=== PATIENT | male | born 1940 | race African-American/Black ===

== ENCOUNTER 2017-01-11 14:26 | Day surgery (SDC) | payer OTHER, BC ==
--- NOTE | 2017-01-11 21:24 | EKG ---
Test Reason : Blood Pressure : / mmHG Vent. Rate : 049 BPM Atrial Rate : 050 BPM P-R Int : 000 ms QRS Dur : 106 ms QT Int : 528 ms P-R-T Axes : 000 032 068 degrees QTc Int : 476 ms ATRIAL FLUTTER - ATYPICAL ABNORMAL ECG WHEN COMPARED WITH ECG OF 02-JAN-2015 08:03, ATRIAL FLUTTER HAS REPLACED SINUS RHYTHM VENT. RATE HAS DECREASED BY 55 BPM T WAVE VARIATION Confirmed by FABIOLA CARTER MD ([id number]) on 01/11/2017 9:24:24 PM Referred By: FABIOLA CARTER Confirmed By:FABIOLA CARTER MD
== END 2017-01-11 15:29 | disposition home or self-care (01) ==
LOC: JASU-ENDO 14:26
PROVIDERS: ATTEND Internal Medicine Cardiovascular Disease
PROC: B246ZZ4 Ultrasonography of Right and Left Heart, Transesophageal (ICD-10-PCS; principal; 2017-01-11)
DX: Z53.8 Procedure and treatment not carried out for other reasons (principal)
CPT/HCPCS: 93005; 93010

== ENCOUNTER 2017-01-18 11:48 | Day surgery (SDC) | payer OTHER, BC ==
[2017-01-18 12:32] VITALS: BMI 24.0
[2017-01-18] MEDS ORDERED: LIDOCAINE VISCOUS 2% ORAL/TOP 20 ML UNIT-DOSE CUP MM ONE (13:21)
[2017-01-18 13:47] VITALS: TEMP 97.2
[2017-01-18 14:36] VITALS: BP 117/83; PULSE 53
--- NOTE | 2017-01-18 16:33 | EKG ---
Test Reason : Blood Pressure : / mmHG Vent. 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
== END 2017-01-18 14:35 | disposition home or self-care (01) ==
LOC: JASU-ENDO 11:48
PROVIDERS: ATTEND Internal Medicine Cardiovascular Disease
PROC: 5A2204Z Restoration of Cardiac Rhythm, Single (ICD-10-PCS; 2017-01-18)
PROC: B246ZZ4 Ultrasonography of Right and Left Heart, Transesophageal (ICD-10-PCS; principal; 2017-01-18 12:30)
DX: I48.91 Unspecified atrial fibrillation (principal)
CPT/HCPCS: 92960; 93005; 93010; 93312; 93325

== ENCOUNTER 2022-10-11 13:02 | Inpatient (IN) | payer OTHER, BC ==
[2022-10-11] MEDS ORDERED: SODIUM CHLORIDE 0.9% 500 ML INFUS.BAG IV ONE (13:36)
[2022-10-11 14:35] LABS: BASO % 0.3 % (0-2.0); EOS % 0.5 % (0-4.5); HEMATOCRIT 33.1 % (35.4-49); HEMOGLOBIN 10.3 GM/dL (11.7-16.9); LYMPH % 13.1 % (8-40); MCH 22.5 pg (25.7-33.7); MEAN CELL VOLUME 72.5 fl (80-96); MEAN PLT VOLUME 7.8 fl (7.5-11.1); MONO % 7.7 % (3.8-10.2); NEUT % 78.4 % (42.8-82.8); PLATELET COUNT 361 10^3/uL (134-434); RBC 4.56 M/mm3 (4.00-5.60); RDW 25.4 % (11.9-15.9); WHITE BLOOD COUNT 8.6 K/mm3 (4.0-10.0)
[2022-10-11 14:36] LABS: INR 1.3 (0.83-1.09)
[2022-10-11 14:39] LABS: ACTIVATED PTT 21.3 SECONDS (25.2-36.5)
[2022-10-11 14:47] LABS: CHLORIDE 96 mmol/L (98-107); POTASSIUM 4.6 mmol/L (3.5-5.1); SODIUM 134 mmol/L (136-145)
[2022-10-11 14:49] LABS: BLOOD UREA NITROGEN 32.9 mg/dL (7-18)
[2022-10-11 14:50] LABS: ALBUMIN 3.3 g/dl (3.4-5.0); ANION GAP 7 MMOL/L (8-16); CO2 31 mmol/L (21-32); GLUCOSE,RANDOM 93 mg/dL (74-106); MAGNESIUM 2.3 mg/dL (1.8-2.4)
[2022-10-11 14:52] LABS: PHOSPHOROUS 2.7 mg/dL (2.5-4.9); SGPT/ALT 17 U/L (13-61)
[2022-10-11 14:54] LABS: BILIRUBIN,TOTAL 0.7 mg/dL (0.2-1); CREATININE 0.9 mg/dL (0.55-1.3); SGOT/AST 25 U/L (15-37); TOT PROT 7.5 g/dl (6.4-8.2)
[2022-10-11 14:55] LABS: ALK PHOS 133 U/L (45-117)
[2022-10-11 14:59] LABS: CALCIUM 14.9 mg/dL (8.5-10.1)
[2022-10-11 15:00] LABS: ANISOCYTOSIS 2+; MACROCYTOSIS 1+
[2022-10-11] MEDS ORDERED: CALCITONIN - SALMON SYNTHETIC 400 UNIT/2 ML VIAL SQ SCH ×2 (16:15→16:30)
[2022-10-11] MEDS ORDERED: SODIUM CHLORIDE 1,000 ML IV SCH (16:15)
[2022-10-11] MEDS ORDERED: ZOLEDRONIC ACID 4 MG in SODIUM CHLORIDE 100 ML IVPB ONE ×2 (18:46→21:45)
[2022-10-11] MEDS: CARVEDILOL 12.5 MG TABLET (FP) PO SCH (23:02)
[2022-10-12] MEDS: CALCITONIN - SALMON SYNTHETIC 400 UNIT/2 ML VIAL IM SCH ×2 (06:50→20:39)
[2022-10-12 09:20] LABS: POTASSIUM 4.2 mmol/L (3.5-5.1)
[2022-10-12 09:27] LABS: BLOOD UREA NITROGEN 27.3 mg/dL (7-18)
[2022-10-12 09:29] LABS: CREATININE 0.7 mg/dL (0.55-1.3)
[2022-10-12 09:42] LABS: CALCIUM 12.4 mg/dL (8.5-10.1)
[2022-10-12] MEDS ORDERED: LOSARTAN POTASSIUM 50 MG TABLET PO SCH (10:00)
[2022-10-12] MEDS ORDERED: SPIRONOLACTONE 25 MG TABLET PO SCH (10:00)
[2022-10-12] MEDS ORDERED: FUROSEMIDE 20 MG TABLET (FP) PO SCH (10:00)
[2022-10-12] MEDS ORDERED: LOSARTAN POTASSIUM 25 MG TABLET PO ONE (10:19)
[2022-10-12 10:46] LABS: HEMATOCRIT 31.2 % (35.4-49); HEMOGLOBIN 9.9 GM/dL (11.7-16.9); MCH 23.1 pg (25.7-33.7); MCHC 31.7 g/dl (32.0-35.9); MEAN PLT VOLUME 8.3 fl (7.5-11.1); PLATELET COUNT 306 10^3/uL (134-434); RBC 4.28 M/mm3 (4.00-5.60); RDW 25.4 % (11.9-15.9); WHITE BLOOD COUNT 7.7 K/mm3 (4.0-10.0)
[2022-10-12] MEDS: ATORVASTATIN CA 20 MG TABLET (FP) PO SCH (12:28)
[2022-10-12 12:31] LABS: ANISOCYTOSIS 2+; MACROCYTOSIS 0; OVALOCYTE 2+; TARGET CELLS 2+; TEAR DROP CELLS 2+
[2022-10-12] MEDS: CARVEDILOL 12.5 MG TABLET (FP) PO SCH (12:54)
[2022-10-12] MEDS: CARVEDILOL 6.25 MG TABLET (FP) PO SCH ×2 (12:59→21:41)
[2022-10-12] MEDS ORDERED: SODIUM CHLORIDE 500 ML IV STA (14:53)
[2022-10-12] MEDS: SODIUM CHLORIDE 0.45% 1,000 ML IV SCH (16:50)
[2022-10-12] MEDS: FUROSEMIDE 20 MG TABLET (FP) PO SCH (21:42)
[2022-10-13] MEDS: IRON SUCROSE INJECTION 200 MG in SODIUM CHLORIDE 90 ML IVPB SCH (06:34)
[2022-10-13] MEDS: CALCITONIN - SALMON SYNTHETIC 400 UNIT/2 ML VIAL IM SCH (06:35)
[2022-10-13] MEDS: FUROSEMIDE 20 MG TABLET (FP) PO SCH ×2 (10:56→22:47)
[2022-10-13] MEDS: ATORVASTATIN CA 20 MG TABLET (FP) PO SCH (10:57)
[2022-10-13] MEDS: CARVEDILOL 6.25 MG TABLET (FP) PO SCH ×2 (10:57→21:51)
[2022-10-13 12:34] LABS: POTASSIUM 3.9 mmol/L (3.5-5.1)
[2022-10-13 12:37] LABS: ALBUMIN 2.9 g/dl (3.4-5.0); BLOOD UREA NITROGEN 21.2 mg/dL (7-18)
[2022-10-13 12:40] LABS: CREATININE 0.8 mg/dL (0.55-1.3)
[2022-10-13 12:41] LABS: BILIRUBIN,TOTAL 0.5 mg/dL (0.2-1); TOT PROT 6.6 g/dl (6.4-8.2)
[2022-10-13] MEDS: SODIUM CHLORIDE 0.45% 1,000 ML IV SCH (13:24)
[2022-10-13] MEDS: POLYETHYLENE GLYCOL (HEALTHYLAX) 3350 17 GM PACKET PO SCH (22:47)
[2022-10-13 23:54] VITALS: BMI 18.5
[2022-10-14] MEDS: IRON SUCROSE INJECTION 200 MG in SODIUM CHLORIDE 90 ML IVPB SCH (06:41)
[2022-10-14 08:52] LABS: BASO % 0.1 % (0-2.0); EOS % 1.2 % (0-4.5); HEMATOCRIT 27.9 % (35.4-49); HEMOGLOBIN 8.5 GM/dL (11.7-16.9); MCH 22.7 pg (25.7-33.7); MCHC 30.4 g/dl (32.0-35.9); MEAN CELL VOLUME 74.5 fl (80-96); MEAN PLT VOLUME 8.7 fl (7.5-11.1); MONO % 7.4 % (3.8-10.2); NEUT % 81.3 % (42.8-82.8); PLATELET COUNT 238 10^3/uL (134-434); RBC 3.75 M/mm3 (4.00-5.60); RDW 25.9 % (11.9-15.9); WHITE BLOOD COUNT 7.4 K/mm3 (4.0-10.0)
[2022-10-14 09:40] LABS: RETICULOCYTES 0.57 % (0.5-1.5)
[2022-10-14] MEDS: FUROSEMIDE 20 MG TABLET (FP) PO SCH ×2 (10:04→10:13)
[2022-10-14] MEDS: CARVEDILOL 6.25 MG TABLET (FP) PO SCH ×2 (10:05→10:13)
[2022-10-14] MEDS: PANTOPRAZOLE 40 MG TABLET PO SCH (10:05)
[2022-10-14] MEDS: ATORVASTATIN CA 20 MG TABLET (FP) PO SCH (10:05)
[2022-10-14] MEDS: POLYETHYLENE GLYCOL (HEALTHYLAX) 3350 17 GM PACKET PO SCH ×2 (10:05→22:24)
[2022-10-14 11:26] LABS: CALCIUM 9.6 mg/dL (8.5-10.1)
[2022-10-14] MEDS ORDERED: SODIUM CHLORIDE 500 ML IV STA ×3 (12:00→22:44)
[2022-10-14 13:49] LABS: HEMATOCRIT 29.9 % (35.4-49); HEMOGLOBIN 9.3 GM/dL (11.7-16.9); MEAN CELL VOLUME 74.1 fl (80-96); MEAN PLT VOLUME 7.6 fl (7.5-11.1); PLATELET COUNT 253 10^3/uL (134-434); RBC 4.04 M/mm3 (4.00-5.60); RDW 26.1 % (11.9-15.9); WHITE BLOOD COUNT 8.1 K/mm3 (4.0-10.0)
[2022-10-14] MEDS: SODIUM CHLORIDE 1,000 ML IV SCH ×2 (13:50→14:50)
[2022-10-14 14:01] LABS: POTASSIUM 3.7 mmol/L (3.5-5.1)
[2022-10-14 14:03] LABS: BLOOD UREA NITROGEN 16.5 mg/dL (7-18); CALCIUM 9.6 mg/dL (8.5-10.1)
[2022-10-14 14:04] LABS: ALBUMIN 2.7 g/dl (3.4-5.0)
[2022-10-14 14:07] LABS: CREATININE 0.7 mg/dL (0.55-1.3)
[2022-10-14 14:08] LABS: BILIRUBIN,TOTAL 0.4 mg/dL (0.2-1); TOT PROT 5.9 g/dl (6.4-8.2)
[2022-10-14 14:25] LABS: LACTIC ACID 2.3 mmol/L (0.4-2.0)
[2022-10-15] MEDS: IRON SUCROSE INJECTION 200 MG in SODIUM CHLORIDE 90 ML IVPB SCH (06:43)
[2022-10-15] MEDS ORDERED: SODIUM CHLORIDE 1,000 ML IV SCH (07:18)
[2022-10-15] MEDS ORDERED: SODIUM CHLORIDE 1,000 ML IV STA (07:18)
[2022-10-15 09:53] LABS: BASO % 0.4 % (0-2.0); HEMATOCRIT 25.8 % (35.4-49); HEMOGLOBIN 8.3 GM/dL (11.7-16.9); LYMPH % 5.4 % (8-40); MCH 23.7 pg (25.7-33.7); MCHC 32.2 g/dl (32.0-35.9); MEAN CELL VOLUME 73.5 fl (80-96); MEAN PLT VOLUME 8.1 fl (7.5-11.1); MONO % 8.3 % (3.8-10.2); NEUT % 83.9 % (42.8-82.8); PLATELET COUNT 207 10^3/uL (134-434); RBC 3.52 M/mm3 (4.00-5.60); WHITE BLOOD COUNT 7.6 K/mm3 (4.0-10.0)
[2022-10-15] MEDS ORDERED: MIDODRINE HCL 2.5 MG TABLET PO SCH ×2 (10:00→18:00)
[2022-10-15] MEDS ORDERED: FUROSEMIDE 20 MG TABLET (FP) PO SCH (10:00)
[2022-10-15 10:09] LABS: CALCIUM 8.4 mg/dL (8.5-10.1)
[2022-10-15 10:10] LABS: ALBUMIN 2.3 g/dl (3.4-5.0); BLOOD UREA NITROGEN 11.2 mg/dL (7-18)
[2022-10-15 10:13] LABS: CREATININE 0.5 mg/dL (0.55-1.3)
[2022-10-15 10:14] LABS: BILIRUBIN,TOTAL 0.8 mg/dL (0.2-1); TOT PROT 5.1 g/dl (6.4-8.2)
[2022-10-15] MEDS: POLYETHYLENE GLYCOL (HEALTHYLAX) 3350 17 GM PACKET PO SCH ×2 (10:33→21:36)
[2022-10-15] MEDS: ATORVASTATIN CA 20 MG TABLET (FP) PO SCH (10:34)
[2022-10-15] MEDS: PANTOPRAZOLE 40 MG TABLET PO SCH (10:34)
[2022-10-15 12:21] LABS: ANISOCYTOSIS 2+; MACROCYTOSIS 0; OVALOCYTE 2+; TARGET CELLS 1+
[2022-10-15] MEDS ORDERED: ACETAMINOPHEN 1000 MG/100 ML BAG IVPB ONE (17:59)
[2022-10-15] MEDS ORDERED: ALBUTEROL SO4 2.5/IPRATROPIUM 0.5 INH SOL 3 ML VIAL.NEB. NEB ONE (18:08)
[2022-10-16 09:48] LABS: BASO % 0.1 % (0-2.0); EOS % 0.9 % (0-4.5); HEMATOCRIT 27.5 % (35.4-49); HEMOGLOBIN 8.5 GM/dL (11.7-16.9); LYMPH % 5.5 % (8-40); MCH 23.3 pg (25.7-33.7); MCHC 30.9 g/dl (32.0-35.9); MEAN CELL VOLUME 75.3 fl (80-96); MEAN PLT VOLUME 8.2 fl (7.5-11.1); MONO % 4.4 % (3.8-10.2); NEUT % 89.1 % (42.8-82.8); PLATELET COUNT 275 10^3/uL (134-434); RBC 3.65 M/mm3 (4.00-5.60); RDW 26.9 % (11.9-15.9); WHITE BLOOD COUNT 14.9 K/mm3 (4.0-10.0)
[2022-10-16] MEDS ORDERED: MIDODRINE HCL 5 MG TABLET PO SCH (10:00)
[2022-10-16 10:06] LABS: POTASSIUM 4.1 mmol/L (3.5-5.1)
[2022-10-16 10:20] LABS: BLOOD UREA NITROGEN 14.1 mg/dL (7-18); CALCIUM 8.4 mg/dL (8.5-10.1)
[2022-10-16 10:23] LABS: CREATININE 0.6 mg/dL (0.55-1.3)
[2022-10-16 12:04] LABS: HIV INTERPRETATION NEGATIVE (NEGATIVE)
[2022-10-16] MEDS: POLYETHYLENE GLYCOL (HEALTHYLAX) 3350 17 GM PACKET PO SCH ×2 (12:39→21:24)
[2022-10-16] MEDS: PANTOPRAZOLE 40 MG TABLET PO SCH (12:40)
[2022-10-16] MEDS ORDERED: PIPERACILLIN/TAZOB 3.375 GM 3.375 GM in DEXTROSE 5%-WATER - 50 ML IVPB SCH ×3 (14:00)
[2022-10-16] MEDS ORDERED: PIPERACILLIN/TAZOB 4.5 GM 4.5 GM in DEXTROSE 5%-WATER 100 ML IVPB SCH (14:00)
[2022-10-16] MEDS: PIPERACILLIN/TAZOB 4.5 GM 4.5 GM in DEXTROSE 5%-WATER 100 ML IVPB SCH (15:45)
[2022-10-16] MEDS: MIDODRINE HCL 5 MG TABLET PO SCH ×2 (15:48→18:19)
[2022-10-16 17:28] LABS: BODYL FLD EOSINOPHIL 13 %
[2022-10-17] MEDS: PIPERACILLIN/TAZOB 4.5 GM 4.5 GM in DEXTROSE 5%-WATER 100 ML IVPB SCH ×3 (01:18→18:13)
[2022-10-17] MEDS ORDERED: SODIUM CHLORIDE 500 ML IV STA (02:54)
[2022-10-17 07:02] LABS: HEMATOCRIT 32.1 % (35.4-49); HEMOGLOBIN 9.7 GM/dL (11.7-16.9); MCH 22.8 pg (25.7-33.7); MCHC 30.2 g/dl (32.0-35.9); MEAN CELL VOLUME 75.5 fl (80-96); MEAN PLT VOLUME 8.7 fl (7.5-11.1); PLATELET COUNT 290 10^3/uL (134-434); RBC 4.26 M/mm3 (4.00-5.60); RDW 26.9 % (11.9-15.9); WHITE BLOOD COUNT 14.8 K/mm3 (4.0-10.0)
[2022-10-17 07:13] LABS: POTASSIUM 4.3 mmol/L (3.5-5.1)
[2022-10-17 07:14] LABS: CALCIUM 8.1 mg/dL (8.5-10.1)
[2022-10-17 07:18] LABS: CREATININE 0.5 mg/dL (0.55-1.3)
[2022-10-17] MEDS: MIDODRINE HCL 5 MG TABLET PO SCH ×3 (09:58→18:13)
[2022-10-17] MEDS: PANTOPRAZOLE 40 MG TABLET PO SCH (09:58)
[2022-10-17] MEDS: POLYETHYLENE GLYCOL (HEALTHYLAX) 3350 17 GM PACKET PO SCH ×2 (09:58→21:08)
[2022-10-17 10:56] LABS: LACTIC ACID 2.2 mmol/L (0.4-2.0)
[2022-10-17] MEDS ORDERED: SODIUM CHLORIDE 1,000 ML IV SCH (12:00)
[2022-10-17] MEDS: MIRTAZAPINE 15 MG TABLET (FP) PO SCH (21:09)
[2022-10-18] MEDS: PIPERACILLIN/TAZOB 4.5 GM 4.5 GM in DEXTROSE 5%-WATER 100 ML IVPB SCH ×3 (01:21→17:36)
[2022-10-18 07:17] LABS: HEMATOCRIT 28.3 % (35.4-49); MCH 23.6 pg (25.7-33.7); MCHC 31.8 g/dl (32.0-35.9); MEAN CELL VOLUME 74.1 fl (80-96); PLATELET COUNT 296 10^3/uL (134-434); RBC 3.81 M/mm3 (4.00-5.60); RDW 27.1 % (11.9-15.9); WHITE BLOOD COUNT 12.5 K/mm3 (4.0-10.0)
[2022-10-18] MEDS: MIDODRINE HCL 5 MG TABLET PO SCH ×3 (09:57→17:36)
[2022-10-18] MEDS: POLYETHYLENE GLYCOL (HEALTHYLAX) 3350 17 GM PACKET PO SCH ×2 (09:58→21:24)
[2022-10-18] MEDS: PANTOPRAZOLE 40 MG TABLET PO SCH (09:58)
[2022-10-18] MEDS: MIRTAZAPINE 15 MG TABLET (FP) PO SCH (21:24)
[2022-10-19] MEDS: PIPERACILLIN/TAZOB 4.5 GM 4.5 GM in DEXTROSE 5%-WATER 100 ML IVPB SCH ×3 (01:09→17:12)
[2022-10-19 07:15] LABS: POTASSIUM 4.1 mmol/L (3.5-5.1)
[2022-10-19 07:17] LABS: ALBUMIN 1.9 g/dl (3.4-5.0); CALCIUM 7.7 mg/dL (8.5-10.1)
[2022-10-19 07:18] LABS: BLOOD UREA NITROGEN 14.2 mg/dL (7-18)
[2022-10-19 07:21] LABS: CREATININE 0.5 mg/dL (0.55-1.3)
[2022-10-19 07:22] LABS: BILIRUBIN,TOTAL 0.6 mg/dL (0.2-1); TOT PROT 4.7 g/dl (6.4-8.2)
[2022-10-19 07:47] LABS: HEMATOCRIT 25.9 % (35.4-49); HEMOGLOBIN 8.2 GM/dL (11.7-16.9); MCH 23.2 pg (25.7-33.7); MCHC 31.8 g/dl (32.0-35.9); MEAN CELL VOLUME 72.9 fl (80-96); MEAN PLT VOLUME 7.1 fl (7.5-11.1); PLATELET COUNT 279 10^3/uL (134-434); RBC 3.55 M/mm3 (4.00-5.60); RDW 26.8 % (11.9-15.9); WHITE BLOOD COUNT 11.2 K/mm3 (4.0-10.0)
[2022-10-19 09:09] LABS: ANISOCYTOSIS 2+; MACROCYTOSIS 0; OVALOCYTE 1+
[2022-10-19] MEDS: POLYETHYLENE GLYCOL (HEALTHYLAX) 3350 17 GM PACKET PO SCH ×2 (09:24→22:02)
[2022-10-19] MEDS: MIDODRINE HCL 5 MG TABLET PO SCH ×3 (09:24→17:13)
[2022-10-19] MEDS: PANTOPRAZOLE 40 MG TABLET PO SCH (09:24)
[2022-10-19 12:10] LABS: BODY FLUID ALBUMIN 1.6 g/dL (Not Estab.)
[2022-10-19] MEDS: MIRTAZAPINE 15 MG TABLET (FP) PO SCH (22:02)
[2022-10-20] MEDS: PIPERACILLIN/TAZOB 4.5 GM 4.5 GM in DEXTROSE 5%-WATER 100 ML IVPB SCH ×3 (02:51→18:32)
[2022-10-20 06:35] LABS: HEMATOCRIT 28.1 % (35.4-49); HEMOGLOBIN 8.7 GM/dL (11.7-16.9); MCH 23.3 pg (25.7-33.7); MCHC 31.2 g/dl (32.0-35.9); MEAN CELL VOLUME 74.8 fl (80-96); MEAN PLT VOLUME 7.3 fl (7.5-11.1); PLATELET COUNT 285 10^3/uL (134-434); RBC 3.75 M/mm3 (4.00-5.60); RDW 26.6 % (11.9-15.9); WHITE BLOOD COUNT 10.8 K/mm3 (4.0-10.0)
[2022-10-20 06:58] LABS: POTASSIUM 4.4 mmol/L (3.5-5.1)
[2022-10-20 07:00] LABS: ALBUMIN 1.8 g/dl (3.4-5.0); BLOOD UREA NITROGEN 13.4 mg/dL (7-18)
[2022-10-20 07:03] LABS: CREATININE 0.4 mg/dL (0.55-1.3)
[2022-10-20 07:05] LABS: BILIRUBIN,TOTAL 0.7 mg/dL (0.2-1)
[2022-10-20 08:42] LABS: ANISOCYTOSIS 2+; MACROCYTOSIS 0; TARGET CELLS 0
[2022-10-20] MEDS: MIDODRINE HCL 5 MG TABLET PO SCH ×3 (09:12→18:32)
[2022-10-20] MEDS: PANTOPRAZOLE 40 MG TABLET PO SCH (09:12)
[2022-10-20] MEDS: POLYETHYLENE GLYCOL (HEALTHYLAX) 3350 17 GM PACKET PO SCH ×2 (09:13→21:20)
[2022-10-20 13:07] LABS: BODY FLUID ALBUMIN 1.5 g/dL (Not Estab.)
[2022-10-20] MEDS: MIRTAZAPINE 15 MG TABLET (FP) PO SCH (21:20)
[2022-10-21] MEDS: PIPERACILLIN/TAZOB 4.5 GM 4.5 GM in DEXTROSE 5%-WATER 100 ML IVPB SCH ×3 (01:04→17:13)
[2022-10-21 06:36] LABS: HEMATOCRIT 27.1 % (35.4-49); HEMOGLOBIN 8.6 GM/dL (11.7-16.9); MCH 23.8 pg (25.7-33.7); MCHC 31.8 g/dl (32.0-35.9); MEAN CELL VOLUME 74.8 fl (80-96); MEAN PLT VOLUME 7.3 fl (7.5-11.1); PLATELET COUNT 280 10^3/uL (134-434); RBC 3.63 M/mm3 (4.00-5.60); RDW 27.3 % (11.9-15.9); WHITE BLOOD COUNT 13.1 K/mm3 (4.0-10.0)
[2022-10-21 06:55] LABS: POTASSIUM 4.6 mmol/L (3.5-5.1)
[2022-10-21 06:57] LABS: BLOOD UREA NITROGEN 12.9 mg/dL (7-18); CALCIUM 8.1 mg/dL (8.5-10.1)
[2022-10-21 07:01] LABS: CREATININE 0.5 mg/dL (0.55-1.3)
[2022-10-21] MEDS ORDERED: ENOXAPARIN NA (PORCINE) 40 MG/0.4 ML DISP.SYRIN SQ ONE (10:00)
[2022-10-21] MEDS: POLYETHYLENE GLYCOL (HEALTHYLAX) 3350 17 GM PACKET PO SCH ×2 (10:09→21:25)
[2022-10-21] MEDS: PANTOPRAZOLE 40 MG TABLET PO SCH (10:10)
[2022-10-21] MEDS: MIDODRINE HCL 5 MG TABLET PO SCH ×3 (10:10→17:13)
[2022-10-21] MEDS: AMINO ACIDS/PROTEIN HYDROLYS 30 ML LIQUID.PKT PO SCH (17:13)
[2022-10-21] MEDS: MIRTAZAPINE 15 MG TABLET (FP) PO SCH (21:25)
[2022-10-21 21:28] LABS: INR 1.33 (0.83-1.09); PROTHROMBIN TIME (PATIENT) 15.4 SEC (9.7-13.0)
[2022-10-21 21:37] LABS: ACTIVATED PTT 27.2 SECONDS (25.2-36.5)
[2022-10-22] MEDS: PIPERACILLIN/TAZOB 4.5 GM 4.5 GM in DEXTROSE 5%-WATER 100 ML IVPB SCH ×3 (01:57→17:53)
[2022-10-22] MEDS ORDERED: PROPOFOL 20 ML ONE (07:02)
[2022-10-22] MEDS ORDERED: MIDAZOLAM HCL 2 MG/2 ML SINGLE DOSE VIAL ONE (07:02)
[2022-10-22] MEDS ORDERED: ROCURONIUM BROMIDE 50 MG/5 ML SYRINGE ONE (07:02)
[2022-10-22 07:04] LABS: HEMATOCRIT 27.7 % (35.4-49); HEMOGLOBIN 8.6 GM/dL (11.7-16.9); MCH 23.2 pg (25.7-33.7); MEAN CELL VOLUME 74.9 fl (80-96); MEAN PLT VOLUME 7.5 fl (7.5-11.1); PLATELET COUNT 258 10^3/uL (134-434); RDW 27.4 % (11.9-15.9); WHITE BLOOD COUNT 11.4 K/mm3 (4.0-10.0)
[2022-10-22] MEDS: AMINO ACIDS/PROTEIN HYDROLYS 30 ML LIQUID.PKT PO SCH ×2 (07:13→17:53)
[2022-10-22 07:20] LABS: INR 1.31 (0.83-1.09); PROTHROMBIN TIME (PATIENT) 15.2 SEC (9.7-13.0)
[2022-10-22 07:23] LABS: ACTIVATED PTT 28.1 SECONDS (25.2-36.5)
[2022-10-22 07:32] LABS: POTASSIUM 4.6 mmol/L (3.5-5.1)
[2022-10-22 07:34] LABS: BLOOD UREA NITROGEN 10.6 mg/dL (7-18); CALCIUM 8.3 mg/dL (8.5-10.1)
[2022-10-22 07:38] LABS: CREATININE 0.5 mg/dL (0.55-1.3)
[2022-10-22] MEDS ORDERED: BUPIVACAINE HCL/PF 0.25% (2.5MG/ML) 10 ML VIAL ONE ×2 (08:03→09:14)
[2022-10-22] MEDS ORDERED: BUPIVACAINE LIPOSOME/PF (EXPAREL) 266 MG/20 ML VIAL ONE (08:03)
[2022-10-22 09:02] LABS: ANISOCYTOSIS 3+; MACROCYTOSIS 0
[2022-10-22] MEDS: MIDODRINE HCL 5 MG TABLET PO SCH ×3 (09:46→17:53)
[2022-10-22] MEDS: PANTOPRAZOLE 40 MG TABLET PO SCH (09:46)
[2022-10-22] MEDS: POLYETHYLENE GLYCOL (HEALTHYLAX) 3350 17 GM PACKET PO SCH ×2 (09:46→21:00)
[2022-10-22] MEDS ORDERED: MULTIVITAMINS (DAILY MVI) TABLET (FP) PO SCH (10:00)
[2022-10-22] MEDS ORDERED: BUPIVACAINE HCL/PF 0.25% (2.5MG/ML) 10 ML VIAL IJ ONE ×2 (10:10→11:00)
[2022-10-22] MEDS ORDERED: PIPERACILLIN/TAZOBACTAM 3.375 GM VIAL IVPB ONE (10:14)
[2022-10-22] MEDS ORDERED: NEOSTIGMINE METHYLSULFATE 0.5 MG/1 ML - 10 ML MDV ONE (11:00)
[2022-10-22] MEDS ORDERED: GLYCOPYRROLATE 0.2 MG/1 ML VIAL ONE ×2 (11:00→11:17)
[2022-10-22] MEDS ORDERED: ONDANSETRON 4 MG/2 ML VIAL ONE (11:00)
[2022-10-22] MEDS ORDERED: DEXAMETHASONE SOD PHOSPHATE 4 MG/1 ML VIAL ONE (11:00)
[2022-10-22] MEDS ORDERED: METOPROLOL TARTRATE 5 MG/5 ML VIAL ONE (11:18)
[2022-10-22] MEDS ORDERED: KETOROLAC TROMETHAMINE 15 MG/ML VIAL IVPUSH PRN (12:20)
[2022-10-22] MEDS ORDERED: morphine CARPU-JECT 2 MG/1 ML DISP.SYRIN IVPUSH PRN (12:44)
[2022-10-22] MEDS: ACETAMINOPHEN 1000 MG/100 ML BAG IVPB SCH ×2 (12:44→20:25)
[2022-10-22] MEDS ORDERED: ONDANSETRON 4 MG/2 ML VIAL IVPUSH PRN (12:46)
[2022-10-22] MEDS ORDERED: PROMETHAZINE HCL 25 MG/1 ML VIAL IVPB PRN (12:46)
[2022-10-22] MEDS ORDERED: DEXAMETHASONE SOD PHOSPHATE 4 MG/1 ML VIAL IVPUSH PRN (12:46)
[2022-10-22] MEDS ORDERED: HYDROmorphone *PCA* 10MG/50ML DISP.SYRIN PCA SCH (13:00)
[2022-10-22] MEDS ORDERED: HYDROmorphone *PCA* 10MG/50ML DISP.SYRIN ONE (13:02)
[2022-10-22] MEDS: MIRTAZAPINE 15 MG TABLET (FP) PO SCH (21:00)
[2022-10-22] MEDS ORDERED: CHLORHEXIDINE GLUCONATE 4% CLEANSER FOR DECOLONIZATION TP SCH (22:00)
[2022-10-22] MEDS ORDERED: MUPIROCIN 2% TOPICAL OINTMENT FOR DECOLONIZATION NS SCH (22:00)
[2022-10-23] MEDS: PIPERACILLIN/TAZOB 4.5 GM 4.5 GM in DEXTROSE 5%-WATER 100 ML IVPB SCH ×3 (00:59→17:45)
[2022-10-23] MEDS: ACETAMINOPHEN 1000 MG/100 ML BAG IVPB SCH ×2 (04:28→13:07)
[2022-10-23 07:04] LABS: HEMOGLOBIN 8.6 GM/dL (11.7-16.9); MCH 23.2 pg (25.7-33.7); MCHC 30.7 g/dl (32.0-35.9); MEAN CELL VOLUME 75.7 fl (80-96); MEAN PLT VOLUME 8.4 fl (7.5-11.1); PLATELET COUNT 278 10^3/uL (134-434); RDW 27.1 % (11.9-15.9); WHITE BLOOD COUNT 16.6 K/mm3 (4.0-10.0)
[2022-10-23 08:24] LABS: POTASSIUM 5.2 mmol/L (3.5-5.1)
[2022-10-23 08:27] LABS: ALBUMIN 1.9 g/dl (3.4-5.0)
[2022-10-23 08:30] LABS: CREATININE 0.5 mg/dL (0.55-1.3)
[2022-10-23 08:32] LABS: BILIRUBIN,TOTAL 0.6 mg/dL (0.2-1); TOT PROT 5.2 g/dl (6.4-8.2)
[2022-10-23 08:48] LABS: ANISOCYTOSIS 3+; MACROCYTOSIS 0
[2022-10-23] MEDS: MULTIVITAMINS (DAILY MVI) TABLET (FP) PO SCH (09:49)
[2022-10-23] MEDS: MIDODRINE HCL 5 MG TABLET PO SCH ×3 (09:49→17:45)
[2022-10-23] MEDS: ENOXAPARIN NA (PORCINE) 40 MG/0.4 ML DISP.SYRIN SQ SCH (09:49)
[2022-10-23] MEDS: PANTOPRAZOLE 40 MG TABLET PO SCH (09:49)
[2022-10-23] MEDS: POLYETHYLENE GLYCOL (HEALTHYLAX) 3350 17 GM PACKET PO SCH ×2 (09:49→21:09)
[2022-10-23] MEDS: AMINO ACIDS/PROTEIN HYDROLYS 30 ML LIQUID.PKT PO SCH ×2 (09:49→17:45)
[2022-10-23] MEDS ORDERED: DEXTROSE 5%-0.45% SALINE 1,000 ML IV SCH (15:00)
[2022-10-23] MEDS: DEXTROSE 5%-NORMAL SALINE 1,000 ML IV SCH (15:15)
[2022-10-23] MEDS: MIRTAZAPINE 15 MG TABLET (FP) PO SCH (21:09)
[2022-10-24] MEDS: PIPERACILLIN/TAZOB 4.5 GM 4.5 GM in DEXTROSE 5%-WATER 100 ML IVPB SCH ×3 (01:06→17:43)
[2022-10-24 06:35] LABS: BASO % 0.1 % (0-2.0); EOS % 0.9 % (0-4.5); HEMOGLOBIN 7.8 GM/dL (11.7-16.9); MCH 23.6 pg (25.7-33.7); MCHC 31.2 g/dl (32.0-35.9); MEAN CELL VOLUME 75.8 fl (80-96); MONO % 4.5 % (3.8-10.2); NEUT % 87.5 % (42.8-82.8); PLATELET COUNT 256 10^3/uL (134-434); RDW 27.1 % (11.9-15.9); WHITE BLOOD COUNT 12.1 K/mm3 (4.0-10.0)
[2022-10-24] MEDS: DEXTROSE 5%-NORMAL SALINE 1,000 ML IV SCH ×3 (06:37→21:43)
[2022-10-24 06:40] LABS: CHLORIDE 110 mmol/L (98-107); POTASSIUM 4.3 mmol/L (3.5-5.1); SODIUM 142 mmol/L (136-145)
[2022-10-24 06:42] LABS: CALCIUM 7.7 mg/dL (8.5-10.1)
[2022-10-24 06:43] LABS: ALBUMIN 1.7 g/dl (3.4-5.0); ANION GAP 6 MMOL/L (8-16); BLOOD UREA NITROGEN 14.5 mg/dL (7-18); CO2 27 mmol/L (21-32); GLUCOSE,RANDOM 102 mg/dL (74-106); MAGNESIUM 1.8 mg/dL (1.8-2.4)
[2022-10-24 06:45] LABS: SGPT/ALT 12 U/L (13-61)
[2022-10-24 06:46] LABS: CREATININE 0.5 mg/dL (0.55-1.3); SGOT/AST 13 U/L (15-37)
[2022-10-24 06:47] LABS: BILIRUBIN,TOTAL 0.5 mg/dL (0.2-1); TOT PROT 4.9 g/dl (6.4-8.2)
[2022-10-24 06:48] LABS: ALK PHOS 100 U/L (45-117)
[2022-10-24] MEDS: AMINO ACIDS/PROTEIN HYDROLYS 30 ML LIQUID.PKT PO SCH ×2 (08:33→17:43)
[2022-10-24 08:57] LABS: ANISOCYTOSIS 0; HELMET CELLS 0; HOWELL-JOLLY BODIES 0; MACROCYTOSIS 0; OVALOCYTE 0; ROULEAU 0; SICKELED CELLS 0; TARGET CELLS 0; TEAR DROP CELLS 0; TOXIC GRANULATION 0
[2022-10-24] MEDS ORDERED: SODIUM PHOSPHATE - 30 MM in DEXTROSE 5%-WATER - 250 ML IVPB ONE (09:00)
[2022-10-24] MEDS: PANTOPRAZOLE 40 MG TABLET PO SCH (09:12)
[2022-10-24] MEDS: ENOXAPARIN NA (PORCINE) 40 MG/0.4 ML DISP.SYRIN SQ SCH (09:12)
[2022-10-24] MEDS: MULTIVITAMINS (DAILY MVI) TABLET (FP) PO SCH (09:12)
[2022-10-24] MEDS: MIDODRINE HCL 5 MG TABLET PO SCH ×3 (09:12→17:43)
[2022-10-24] MEDS: POLYETHYLENE GLYCOL (HEALTHYLAX) 3350 17 GM PACKET PO SCH ×2 (09:12→21:31)
[2022-10-24] MEDS: ACETAMINOPHEN 1000 MG/100 ML BAG IVPB SCH ×2 (11:53→18:35)
[2022-10-24] MEDS ORDERED: MAGNESIUM 1GM/D5W 100ML - 100 ML IVPB IVPB ONE (12:00)
[2022-10-24] MEDS: MIRTAZAPINE 15 MG TABLET (FP) PO SCH (21:31)
[2022-10-25] MEDS: PIPERACILLIN/TAZOB 4.5 GM 4.5 GM in DEXTROSE 5%-WATER 100 ML IVPB SCH ×3 (01:10→17:36)
[2022-10-25] MEDS: ACETAMINOPHEN 1000 MG/100 ML BAG IVPB SCH (02:04)
[2022-10-25 06:54] LABS: HEMATOCRIT 28.7 % (35.4-49); HEMOGLOBIN 8.8 GM/dL (11.7-16.9); MCH 23.6 pg (25.7-33.7); MCHC 30.7 g/dl (32.0-35.9); MEAN CELL VOLUME 76.9 fl (80-96); MEAN PLT VOLUME 8.1 fl (7.5-11.1); PLATELET COUNT 251 10^3/uL (134-434); RBC 3.73 M/mm3 (4.00-5.60); RDW 27.3 % (11.9-15.9); WHITE BLOOD COUNT 10.7 K/mm3 (4.0-10.0)
[2022-10-25 07:46] LABS: POTASSIUM 3.9 mmol/L (3.5-5.1)
[2022-10-25 07:47] LABS: CALCIUM 7.5 mg/dL (8.5-10.1)
[2022-10-25 07:48] LABS: BLOOD UREA NITROGEN 9.4 mg/dL (7-18)
[2022-10-25 07:51] LABS: CREATININE 0.4 mg/dL (0.55-1.3); PHOSPHOROUS 1.3 mg/dL (2.5-4.9)
[2022-10-25] MEDS: AMINO ACIDS/PROTEIN HYDROLYS 30 ML LIQUID.PKT PO SCH ×2 (10:00→17:36)
[2022-10-25] MEDS ORDERED: POTASSIUM PHOSPHATE 30 MM in DEXTROSE 5%-WATER - 250 ML IVPB ONE (11:00)
[2022-10-25] MEDS: MIDODRINE HCL 5 MG TABLET PO SCH ×3 (11:25→17:36)
[2022-10-25] MEDS: ENOXAPARIN NA (PORCINE) 40 MG/0.4 ML DISP.SYRIN SQ SCH (12:25)
[2022-10-25] MEDS: MULTIVITAMINS (DAILY MVI) TABLET (FP) PO SCH (12:25)
[2022-10-25] MEDS: PANTOPRAZOLE 40 MG TABLET PO SCH (12:25)
[2022-10-25] MEDS: POLYETHYLENE GLYCOL (HEALTHYLAX) 3350 17 GM PACKET PO SCH ×2 (12:25→21:30)
[2022-10-25] MEDS ORDERED: AMIODARONE HCL INJECTION 150 MG in DEXTROSE 5%-WATER - 100 ML IVPB ONE (18:16)
[2022-10-25] MEDS ORDERED: AMIODARONE IN DEXTROSE,ISO-OSM 150 MG/100 ML BAG ONE (18:26)
[2022-10-25] MEDS ORDERED: LORazepam 2 MG/ML SDV VIAL IVPUSH STA (20:32)
[2022-10-25] MEDS: DEXTROSE 5%-NORMAL SALINE 1,000 ML IV SCH (20:37)
[2022-10-25] MEDS: MIRTAZAPINE 15 MG TABLET (FP) PO SCH (21:29)
[2022-10-26] MEDS: PIPERACILLIN/TAZOB 4.5 GM 4.5 GM in DEXTROSE 5%-WATER 100 ML IVPB SCH ×3 (01:06→17:11)
[2022-10-26 07:33] LABS: HEMOGLOBIN 8.3 GM/dL (11.7-16.9); MCH 23.5 pg (25.7-33.7); MCHC 30.7 g/dl (32.0-35.9); MEAN CELL VOLUME 76.7 fl (80-96); MEAN PLT VOLUME 8.1 fl (7.5-11.1); PLATELET COUNT 255 10^3/uL (134-434); RBC 3.52 M/mm3 (4.00-5.60); RDW 27.3 % (11.9-15.9); WHITE BLOOD COUNT 11.3 K/mm3 (4.0-10.0)
[2022-10-26 07:55] LABS: POTASSIUM 4.4 mmol/L (3.5-5.1)
[2022-10-26 07:57] LABS: CALCIUM 7.8 mg/dL (8.5-10.1)
[2022-10-26 07:58] LABS: ALBUMIN 1.6 g/dl (3.4-5.0); BLOOD UREA NITROGEN 8.8 mg/dL (7-18); MAGNESIUM 1.9 mg/dL (1.8-2.4)
[2022-10-26 08:01] LABS: CREATININE 0.4 mg/dL (0.55-1.3); PHOSPHOROUS 1.7 mg/dL (2.5-4.9)
[2022-10-26 08:02] LABS: BILIRUBIN,TOTAL 0.5 mg/dL (0.2-1); TOT PROT 4.8 g/dl (6.4-8.2)
[2022-10-26] MEDS ORDERED: NAPH,MB-DB/K PH,MBDB POWDER PACKET PO ONE (08:18)
[2022-10-26 08:30] LABS: ANISOCYTOSIS 2+; MACROCYTOSIS 1+; OVALOCYTE 1+; TARGET CELLS 2+; TEAR DROP CELLS 1+
[2022-10-26] MEDS: ENOXAPARIN NA (PORCINE) 40 MG/0.4 ML DISP.SYRIN SQ SCH (09:04)
[2022-10-26] MEDS: POLYETHYLENE GLYCOL (HEALTHYLAX) 3350 17 GM PACKET PO SCH ×2 (09:05→22:05)
[2022-10-26] MEDS: PANTOPRAZOLE 40 MG TABLET PO SCH (09:05)
[2022-10-26] MEDS: MIDODRINE HCL 5 MG TABLET PO SCH ×3 (09:05→17:09)
[2022-10-26] MEDS: MULTIVITAMINS (DAILY MVI) TABLET (FP) PO SCH (09:05)
[2022-10-26] MEDS: AMINO ACIDS/PROTEIN HYDROLYS 30 ML LIQUID.PKT PO SCH ×2 (09:06→17:10)
[2022-10-26] MEDS: DEXTROSE 5%-NORMAL SALINE 1,000 ML IV SCH (15:20)
[2022-10-26] MEDS ORDERED: SODIUM CHLORIDE 500 ML IV STA (17:28)
[2022-10-26] MEDS ORDERED: POTASSIUM PHOSPHATE 30 MM in DEXTROSE 5%-WATER - 250 ML IVPB ONE (17:30)
[2022-10-26] MEDS: MIRTAZAPINE 15 MG TABLET (FP) PO SCH (22:15)
[2022-10-27] MEDS: PIPERACILLIN/TAZOB 4.5 GM 4.5 GM in DEXTROSE 5%-WATER 100 ML IVPB SCH ×3 (02:37→17:08)
[2022-10-27 07:54] LABS: HEMATOCRIT 24.3 % (35.4-49); HEMOGLOBIN 7.7 GM/dL (11.7-16.9); MCH 24.3 pg (25.7-33.7); MCHC 31.7 g/dl (32.0-35.9); MEAN CELL VOLUME 76.7 fl (80-96); MEAN PLT VOLUME 8.3 fl (7.5-11.1); PLATELET COUNT 255 10^3/uL (134-434); RBC 3.16 M/mm3 (4.00-5.60); WHITE BLOOD COUNT 9.5 K/mm3 (4.0-10.0)
[2022-10-27 08:01] LABS: MAGNESIUM 1.7 mg/dL (1.8-2.4)
[2022-10-27 08:05] LABS: PHOSPHOROUS 2.4 mg/dL (2.5-4.9)
[2022-10-27 09:21] LABS: ANISOCYTOSIS 2+; MACROCYTOSIS 1+
[2022-10-27] MEDS: POLYETHYLENE GLYCOL (HEALTHYLAX) 3350 17 GM PACKET PO SCH (09:32)
[2022-10-27] MEDS: PANTOPRAZOLE 40 MG TABLET PO SCH (09:35)
[2022-10-27] MEDS: MIDODRINE HCL 5 MG TABLET PO SCH ×3 (09:36→17:09)
[2022-10-27] MEDS: AMINO ACIDS/PROTEIN HYDROLYS 30 ML LIQUID.PKT PO SCH ×2 (09:36→17:09)
[2022-10-27] MEDS: ENOXAPARIN NA (PORCINE) 40 MG/0.4 ML DISP.SYRIN SQ SCH (09:36)
[2022-10-27] MEDS: MULTIVITAMINS (DAILY MVI) TABLET (FP) PO SCH (09:36)
[2022-10-27] MEDS ORDERED: MAGNESIUM 2GM/50ML STERILE WATER IVPB IVPB ONE (09:45)
[2022-10-27] MEDS ORDERED: NAPH,MB-DB/K PH,MBDB POWDER PACKET PO ONE (09:45)
[2022-10-27] MEDS: DOCUSATE SODIUM 100 MG CAPSULE (FP) PO SCH (11:19)
[2022-10-27] MEDS: DEXTROSE 5%-NORMAL SALINE 1,000 ML IV SCH (17:08)
[2022-10-27] MEDS: MIRTAZAPINE 15 MG TABLET (FP) PO SCH (21:20)
[2022-10-27] MEDS: APIXABAN 2.5 MG TABLET PO SCH (21:20)
[2022-10-27] MEDS: ATORVASTATIN CA 20 MG TABLET (FP) PO SCH (21:20)
[2022-10-27] MEDS ORDERED: AMIODARONE IN DEXTROSE,ISO-OSM 150 MG/100 ML BAG IVPB ONE (21:30)
[2022-10-27] MEDS ORDERED: AMIODARONE IN DEXTROSE,ISO-OSM 360 MG/200 ML BAG IVPB ONE (21:40)
[2022-10-28] MEDS: PIPERACILLIN/TAZOB 4.5 GM 4.5 GM in DEXTROSE 5%-WATER 100 ML IVPB SCH ×2 (01:03→09:12)
[2022-10-28] MEDS: DEXTROSE 5%-NORMAL SALINE 1,000 ML IV SCH (01:06)
[2022-10-28] MEDS ORDERED: AMIODARONE IN DEXTROSE,ISO-OSM 360 MG/200 ML BAG IVPB ONE (03:40)
[2022-10-28 07:50] LABS: HEMATOCRIT 24.2 % (35.4-49); HEMOGLOBIN 7.5 GM/dL (11.7-16.9); MCH 23.8 pg (25.7-33.7); MCHC 30.9 g/dl (32.0-35.9); MEAN PLT VOLUME 8.2 fl (7.5-11.1); PLATELET COUNT 269 10^3/uL (134-434); RBC 3.14 M/mm3 (4.00-5.60); RDW 28.3 % (11.9-15.9); WHITE BLOOD COUNT 11.8 K/mm3 (4.0-10.0)
[2022-10-28 08:05] LABS: POTASSIUM 4.2 mmol/L (3.5-5.1)
[2022-10-28 08:11] LABS: ALBUMIN 1.6 g/dl (3.4-5.0)
[2022-10-28 08:12] LABS: BLOOD UREA NITROGEN 9.5 mg/dL (7-18); MAGNESIUM 1.9 mg/dL (1.8-2.4)
[2022-10-28 08:14] LABS: CREATININE 0.4 mg/dL (0.55-1.3); PHOSPHOROUS 1.5 mg/dL (2.5-4.9)
[2022-10-28 08:15] LABS: BILIRUBIN,TOTAL 0.3 mg/dL (0.2-1)
[2022-10-28 08:16] LABS: TOT PROT 4.5 g/dl (6.4-8.2)
[2022-10-28] MEDS: MULTIVITAMINS (DAILY MVI) TABLET (FP) PO SCH (09:11)
[2022-10-28] MEDS: MIDODRINE HCL 5 MG TABLET PO SCH ×3 (09:11→17:19)
[2022-10-28] MEDS: APIXABAN 2.5 MG TABLET PO SCH ×2 (09:11→21:04)
[2022-10-28] MEDS: DOCUSATE SODIUM 100 MG CAPSULE (FP) PO SCH (09:11)
[2022-10-28] MEDS: PANTOPRAZOLE 40 MG TABLET PO SCH (09:11)
[2022-10-28] MEDS: AMINO ACIDS/PROTEIN HYDROLYS 30 ML LIQUID.PKT PO SCH ×2 (09:11→17:20)
[2022-10-28 09:26] LABS: ANISOCYTOSIS 2+; MACROCYTOSIS 1+
[2022-10-28] MEDS ORDERED: POTASSIUM PHOSPHATE 30 MM in DEXTROSE 5%-WATER - 250 ML IVPB ONE (12:29)
[2022-10-28] MEDS ORDERED: DEXTROSE 5%-0.45% SALINE 1,000 ML IV SCH (13:30)
[2022-10-28] MEDS: NAPH,MB-DB/K PH,MBDB POWDER PACKET PO SCH ×2 (14:02→21:04)
[2022-10-28] MEDS: metoPROLOL SUCCINATE 25 MG TAB.SR.24H (FP) PO SCH (14:02)
[2022-10-28] MEDS: AMOX TR/POT CLAV 875MG/125MG TABLETS (FP) PO SCH (17:19)
[2022-10-28] MEDS: MIRTAZAPINE 15 MG TABLET (FP) PO SCH (21:04)
[2022-10-28] MEDS: ATORVASTATIN CA 20 MG TABLET (FP) PO SCH (21:04)
[2022-10-29] MEDS: AMOX TR/POT CLAV 875MG/125MG TABLETS (FP) PO SCH ×2 (07:38→17:14)
[2022-10-29] MEDS: AMINO ACIDS/PROTEIN HYDROLYS 30 ML LIQUID.PKT PO SCH ×2 (07:39→17:14)
[2022-10-29 08:10] LABS: ALBUMIN 1.6 g/dl (3.4-5.0); CALCIUM 8.5 mg/dL (8.5-10.1)
[2022-10-29 08:14] LABS: MAGNESIUM 1.9 mg/dL (1.8-2.4)
[2022-10-29 08:15] LABS: BILIRUBIN,TOTAL 0.4 mg/dL (0.2-1); CREATININE 0.4 mg/dL (0.55-1.3); PHOSPHOROUS 1.9 mg/dL (2.5-4.9)
[2022-10-29 08:17] LABS: TOT PROT 4.7 g/dl (6.4-8.2)
[2022-10-29 08:46] LABS: HEMATOCRIT 23.6 % (35.4-49); HEMOGLOBIN 7.4 GM/dL (11.7-16.9); MCH 24.3 pg (25.7-33.7); MCHC 31.4 g/dl (32.0-35.9); MEAN CELL VOLUME 77.5 fl (80-96); MEAN PLT VOLUME 7.9 fl (7.5-11.1); PLATELET COUNT 275 10^3/uL (134-434); RBC 3.05 M/mm3 (4.00-5.60); RDW 29.3 % (11.9-15.9); WHITE BLOOD COUNT 10.5 K/mm3 (4.0-10.0)
[2022-10-29] MEDS: MIDODRINE HCL 5 MG TABLET PO SCH ×3 (09:05→17:15)
[2022-10-29] MEDS: DOCUSATE SODIUM 100 MG CAPSULE (FP) PO SCH (09:05)
[2022-10-29] MEDS: MULTIVITAMINS (DAILY MVI) TABLET (FP) PO SCH (09:05)
[2022-10-29] MEDS: metoPROLOL SUCCINATE 25 MG TAB.SR.24H (FP) PO SCH (09:05)
[2022-10-29] MEDS: PANTOPRAZOLE 40 MG TABLET PO SCH (09:05)
[2022-10-29] MEDS: APIXABAN 2.5 MG TABLET PO SCH ×2 (09:05→21:50)
[2022-10-29] MEDS: NAPH,MB-DB/K PH,MBDB POWDER PACKET PO SCH ×2 (09:05→21:50)
[2022-10-29 10:49] LABS: ANISOCYTOSIS 2+; MACROCYTOSIS 0; OVALOCYTE 1+; TARGET CELLS 2+; TOXIC GRANULATION 2+
[2022-10-29] MEDS ORDERED: PROMETHAZINE HCL 25 MG/1 ML VIAL IVPB PRN (15:08)
[2022-10-29] MEDS ORDERED: ONDANSETRON 4 MG/2 ML VIAL IVPUSH PRN (15:08)
[2022-10-29] MEDS ORDERED: KETOROLAC TROMETHAMINE 15 MG/ML VIAL IVPUSH PRN (15:08)
[2022-10-29] MEDS ORDERED: MIRTAZAPINE 15 MG TABLET (FP) PO SCH (22:00)
[2022-10-29] MEDS ORDERED: ATORVASTATIN CA 20 MG TABLET (FP) PO SCH (22:00)
[2022-10-30 07:54] LABS: HEMATOCRIT 30.8 % (35.4-49); HEMOGLOBIN 9.4 GM/dL (11.7-16.9); MCH 24.1 pg (25.7-33.7); MCHC 30.6 g/dl (32.0-35.9); MEAN CELL VOLUME 78.7 fl (80-96); MEAN PLT VOLUME 8.5 fl (7.5-11.1); PLATELET COUNT 360 10^3/uL (134-434); RBC 3.91 M/mm3 (4.00-5.60); RDW 30.9 % (11.9-15.9); WHITE BLOOD COUNT 12.9 K/mm3 (4.0-10.0)
[2022-10-30 09:10] LABS: ANISOCYTOSIS 1+; MACROCYTOSIS 0; OVALOCYTE 1+
[2022-10-30] MEDS ORDERED: PANTOPRAZOLE 40 MG TABLET PO SCH (10:00)
[2022-10-30] MEDS ORDERED: metoPROLOL SUCCINATE 25 MG TAB.SR.24H (FP) PO SCH (10:00)
[2022-10-30] MEDS ORDERED: DOCUSATE SODIUM 100 MG CAPSULE (FP) PO SCH (10:00)
[2022-10-30] MEDS ORDERED: MULTIVITAMINS (DAILY MVI) TABLET (FP) PO SCH (10:00)
[2022-10-30 10:22] VITALS: TEMP 98.2
[2022-10-30] MEDS: NAPH,MB-DB/K PH,MBDB POWDER PACKET PO SCH (10:24)
[2022-10-30] MEDS: AMINO ACIDS/PROTEIN HYDROLYS 30 ML LIQUID.PKT PO SCH ×2 (10:24→16:38)
[2022-10-30] MEDS: APIXABAN 2.5 MG TABLET PO SCH (10:24)
[2022-10-30] MEDS: MIDODRINE HCL 5 MG TABLET PO SCH ×3 (10:25→17:03)
[2022-10-30] MEDS: AMOX TR/POT CLAV 875MG/125MG TABLETS (FP) PO SCH ×2 (10:25→16:38)
[2022-10-30] MEDS ORDERED: HALOPERIDOL LACTATE 5 MG/ML IM ONE (14:19)
[2022-10-30 17:23] VITALS: BP 135/98; PULSE 99; RESP 20
== END 2022-10-30 18:04 | DRG 166 ==
LOC: JER 13:02 → JERBED 17:36 → J6S 21:47 → J2W 10-16 10:02 → JICU 10-22 12:23 → J4W 10-29 14:50
PROVIDERS: ADMIT Internal Medicine
PROC: 0BBN4ZX Excision of Right Pleura, Percutaneous Endoscopic Approach, Diagnostic (ICD-10-PCS; principal; 2022-10-16)
PROC: 3E0L4GC Introduction of Other Therapeutic Substance into Pleural Cavity, Percutaneous Endoscopic Approach (ICD-10-PCS; 2022-10-16)
PROC: 0W994ZX Drainage of Right Pleural Cavity, Percutaneous Endoscopic Approach, Diagnostic (ICD-10-PCS; 2022-10-16)
PROC: 0W9940Z Drainage of Right Pleural Cavity with Drainage Device, Percutaneous Endoscopic Approach (ICD-10-PCS; 2022-10-16)
PROC: 0W9930Z Drainage of Right Pleural Cavity with Drainage Device, Percutaneous Approach (ICD-10-PCS; 2022-10-16)
DX: C34.31 Malignant neoplasm of lower lobe, right bronchus or lung (principal); E43 Unspecified severe protein-calorie malnutrition; J96.01 Acute respiratory failure with hypoxia; C78.2 Secondary malignant neoplasm of pleura; E87.20 Acidosis, unspecified; J93.83 Other pneumothorax; I48.20 Chronic atrial fibrillation, unspecified; R64 Cachexia; Z68.1 Body mass index [BMI] 19.9 or less, adult; I50.22 Chronic systolic (congestive) heart failure; K92.2 Gastrointestinal hemorrhage, unspecified; I42.0 Dilated cardiomyopathy; E05.90 Thyrotoxicosis, unspecified without thyrotoxic crisis or storm; E78.5 Hyperlipidemia, unspecified; E83.52 Hypercalcemia; R05.3 Chronic cough; D50.9 Iron deficiency anemia, unspecified; I11.0 Hypertensive heart disease with heart failure; I95.9 Hypotension, unspecified; R62.7 Adult failure to thrive; E87.5 Hyperkalemia; I25.10 Atherosclerotic heart disease of native coronary artery without angina pectoris
CPT/HCPCS: 32408; 32557; 36415; 70450-TC; 71045-TC-FY; 71046-TC-FY; 71250-TC; 71260-TC; 72125-TC; 72170-TC-FY; 74018-TC-FY; 74177-TC; 80048; 80053; 82042; 82272; 82306; 82310; 82397; 82533; 82607; 82652; 82728; 82945; 83540; 83550; 83605; 83615; 83735; 83880; 83970; 83986; 84100; 84155; 84165; 84439; 84443; 84484; 85025; 85027; 85045; 85610; 85730; 86140; 86480; 86704; 86803; 86850; 86900; 86901; 87040; 87070; 87075; 87076; 87077; 87081; 87102; 87106; 87116; 87186; 87205; 87206; 87210; 87340; 87389; 87517; 87635; 88108; 88305-TC; 88307-TC; 88331-TC; 88341-TC; 93005; 93010; 93306-TC; 94010; 94640; 97116-GP; 97162-GP; 99285-25; J0282; J1756; J3489; Q9967